=== PATIENT | male | born 2000 | race Caucasian/White ===

== ENCOUNTER 2022-02-18 15:54 | Emergency (ER) | payer OTHER ==
[~2022-02-18] VITALS: Ht 172 cm; Wt 90.7 kg
[2022-02-18 16:37] VITALS: BP 144/87
--- NOTE | 2022-02-18 16:49 | ED General ---
General Chief Complaint: Lower Extremity Stated Complaint: L BIG TOE PAIN Source of Information: Patient Exam Limitations: No Limitations (KHLOE OSORIO) History of Present Illness Date Seen by Provider: Feb 18, 2022 Time Seen by Provider: 16:40 Initial Comments Oziel Scales is a 21 yo male who presented for left big toe pain. Pt has no past medical hx. He states this morning around 1000 an 80lb battery fell on his left great toe. Pt is able to move the toe and ambulate, but both are painful. Pt denies any injury to this area previously. Pt has no numbness, weakness or loss of sensation to the toe or foot. He has good ROM in ankle, but decreased ROM in left great toe. ROS negative unless otherwise stated. Timing/Duration: 12 Hours Associated Systoms: Denies Symptoms (KHLOE OSORIO) Allergies and Home Medications Allergies Coded Allergies: No Known Drug Allergies (Unverified , 02/18/22) Patient Home Medication List Home Medication List Reviewed: Yes (LILI KAUFFMAN MD) Review of Systems Review of Systems Constitutional: No chills, No fever EENTM: No blurred vision, No vision loss Respiratory: No cough, No short of breath Cardiovascular: No chest pain, No palpitations Gastrointestinal: No abdominal pain, No constipation, No diarrhea, No nausea, No vomiting Genitourinary: No dysuria, No frequency Musculoskeletal: No back pain; joint pain (left 1st metatarsal); No muscle pain Skin: No lesions, No lumps, No rash Psychiatric/Neurological: Denies Headache, Denies Numbness, Denies Paresthesia, Denies Weakness Hematologic/Lymphatic: No Symptoms Reported Immunological/Allergic: no symptoms reported (KHLOE OSORIO) Past Nfcaqsz-Kmakcg-Mnvsal Hx Patient Social History Tobacco Use?: No Use of E-Cig and/or Vaping dev: Yes E-Cig or Vaping type used: Nicotine Use of E-Cig and/or Vaping Dar: Current Everyday User Substance use?: No Alcohol Use?: Yes (KHLOE OSORIO) Physical Exam Vital Signs Vital Signs - First Documented 02/18/22 16:37 Temp 36.8 Pulse 112 Resp 16 B/P (MAP) 144/87 (106) Pulse Ox 96 O2 Delivery Room Air (LILI KAUFFMAN MD) Vital Signs Capillary Refill : (KHLOE OSORIO STUDENT) Height, Weight, BMI Height: '" Weight: lbs. oz. kg; BMI Method: General Appearance: No Apparent Distress, WD/WN HEENT: PERRL/EOMI Neck: Full Range of Motion, Normal Inspection Respiratory: Chest Non Tender, No Accessory Muscle Use, No Respiratory Distress Cardiovascular: Regular Rate, Rhythm, Normal Peripheral Pulses Gastrointestinal: Non Tender, Soft Extremity: Normal Capillary Refill, No Pedal Edema, Swelling (left great toe) Neurologic/Psychiatric: Alert, Oriented x3, Normal Mood/Affect Skin: Warm/Dry, Ecchymosis (left great toenail ecchymosis with laceration of base of toenail) Lymphatic: No Adenopathy (KHLOE OSORIO) Progress/Results/Core Measures Suspected Sepsis SIRS Temperature: Pulse: Respiratory Rate: Blood Pressure / Mean: (KHLOE OSORIO) Results/Orders My Orders Orders - LILI KAUFFMAN MD Toe(S) (02/18/22 17:05) Ibuprofen Tablet (Motrin Tablet) (02/18/22 17:15) (LILI KAUFFMAN MD) Medications Given in ED Current Medications Medications Dose Ordered Sig/Marquis Route Start Time Stop Time Status Last Admin Dose Admin Ibuprofen 800 mg ONCE ONCE PO 02/18/22 17:15 02/18/22 17:16 DC 02/18/22 17:18 800 MG (LILI KAUFFMAN MD) Vital Signs/I&O 02/18/22 16:37 Temp 36.8 Pulse 112 Resp 16 B/P (MAP) 144/87 (106) Pulse Ox 96 O2 Delivery Room Air (LILI KAUFFMAN MD) Vital Signs/I&O Capillary Refill : (KHLOE OSORIO) Progress Note : Time: 17:45 Progress Note Consent was provided for trepidation of left great toe. A 16 gauge needle was used to create three small holes in the nail of the left great toe. Serosanguinous drainage was produced from the trepidation sites. 2x2 gauze and tape was applied over the toe after trepidation. Pt tolerated procedure well. (KHLOE OSORIO MED STUDENT) Diagnostic Imaging Diagonstic Imaging: Xray Comments [facility] [place], [place] NAME: OZIEL SCALES [facility] REC#: [id number] PT STATUS: REG ER : 2000 PHYSICIAN: LILI KAUFFMAN MD ADMIT DATE: 02/18/22/ER Draft Date of Exam:02/18/22 TOE(S) Indication: Injury to the left great toe. Time of Exam: 5:17 PM Alignment is normal. The proximal distal phalanx of the great toe appear intact. The 1st metatarsal appears intact. No fractures are seen. Impression: No acute bony abnormality is detected. Dictated on workstation # [id number] Dict: 02/18/221725 Trans: 02/18/221726 CV [id number] Interpreted by: EDWIN LEUNG MD Electronically signed by: (LILI KAUFFMAN MD) Departure Impression Primary Impression: Injury of left great toe Qualified Codes: S99.922A - Unspecified injury of left foot, initial encounter Additional Impression: Subungual hematoma of great toe Disposition: HOME, SELF-CARE Condition: Improved Departure-Patient Inst. Decision time for Depature: 17:57 (LILI KAUFFMAN MD) Referrals: NO,LOCAL PHYSICIAN (PCP/Family) Primary Care Physician Patient Instructions: Toe Injury (DC) Add. Discharge Instructions: Take tylenol and ibuprofen for pain. Always eat before taking ibuprofen Elevate your foot above the level of your heart and use ice packs Come back to the ER if you have worsening of symptoms or increased redness, swelling or green drainage from the toe. All discharge instructions reviewed with patient and/or family. Voiced understanding. Verification and Attestation of Medical Student E/M Service A medical student performed and documented this service in my presence. I reviewed and verified all information documented by the medical student and made modifications to such information, when appropriate. I personally performed the physical exam and medical decision making. Lili Kauffman, Feb 18, 2022,17:58 (LILI KAUFFMAN MD) KHLOE OSORIO MED STUDENT Feb 18, 2022 16:49 LILI KAUFFMAN MD Feb 18, 2022 17:33
[2022-02-18] MEDS ORDERED: IBUPROFEN 800 MG (MOTRIN) TAB PO ONE (17:15)
--- NOTE | 2022-02-18 17:28 | Diagnostic Imaging Report ---
Indication: Injury to the left great toe. Time of Exam: 5:17 PM Alignment is normal. The proximal distal phalanx of the great toe appear intact. The 1st metatarsal appears intact. No fractures are seen. Impression: No acute bony abnormality is detected. Dictated by: Dictated on workstation # [id number]
== END 2022-02-18 18:00 | disposition home or self-care (01) ==
LOC: ER 15:57
DX: S90.212A Contusion of left great toe with damage to nail, initial encounter (principal); F17.200 Nicotine dependence, unspecified, uncomplicated; Z28.310 Unvaccinated for COVID-19; W20.8XXA Other cause of strike by thrown, projected or falling object, initial encounter
CPT/HCPCS: 73660